=== PATIENT | female | born 1995 | race Caucasian/White ===

== ENCOUNTER 2023-07-19 15:35 | Emergency (ER) | payer MEDICAID ==
[2023-07-19 15:50] VITALS: O2SAT 100
--- NOTE | 2023-07-19 16:00 | ED Physician Documentation ---
PD HPI SYNCOPE - Stated complaint Stated Complaint: PASSED OUT - Chief complaint Chief Complaint: Neuro - History obtained from History obtained from: Patient - Additional information Additional information: She has a history of recurrent syncope. It started when she was a freshman in high school so greater than 10 years ago. There is some progression to it, now happening she thinks about 6 times a year. She also may have a seizure disorder. There is no particular pattern to it. Today she had a syncopal episode while at work. She was not injured. She states the she feels hot for several seconds before it happens and then gets vertigo and tunnel vision and then passes out. There is no associated chest pain or trouble breathing. She denies any possibility of . PD PAST MEDICAL HISTORY - Past Medical History Past Medical History: Yes Psych: Depression, Anxiety - Past Surgical History Past Surgical History: No - Allergies Allergies/Adverse Reactions: Allergies Allergy/AdvReac Type Severity Reaction Status Date / Time tioconazole Allergy Itching Verified 07/19/23 15:40 [From Monistat 1 (tioconazole)] - Social History Does the pt smoke?: No Smoking Status: Never smoker Does the pt drink ETOH?: Yes Does the pt have substance abuse?: No Substance Use and Type: Marijuana - Immunizations Immunizations are current?: Yes - POLST Patient has POLST: No PD ED PE NORMAL - Vitals Vital signs reviewed: Yes - General General: Alert and oriented X 3, No acute distress - HEENT HEENT: PERRL, EOMI - Neck Neck: Supple, no meningeal sign, No bony TTP - Cardiac Cardiac: RRR, No murmur - Respiratory Respiratory: No respiratory distress, Clear bilaterally - Abdomen Abdomen: Non tender - Derm Derm: Normal color, Warm and dry - Neuro Neuro: Alert and oriented X 3, No motor deficit, No sensory deficit, Normal speech Eye Opening: Spontaneous Motor: Obeys Commands Verbal: Oriented GCS Score: 15 Results - Vitals Vitals: Vital Signs - 24 hr 07/19/23 07/19/23 15:40 16:19 Temperature 36.5 C Heart Rate 64 60 Respiratory 16 23 Rate Blood Pressure 130/86 H 99/84 H O2 Saturation 100 100 Oxygen O2 Source Room air - EKG (time done) 1603 EKG releavant findings:: EKG personally interpreted by author of this note. Relevant findings are: Rate: Rate (enter#) (54) Rhythm: NSR [place]: Normal Intervals: Normal [place] QRS: Low voltage Ischemia: Normal ST segments - Labs Labs: Laboratory Tests 07/19/23 07/19/23 07/19/23 16:15 16:15 16:30 WBC 5.3 RBC 4.09 L Hgb 12.9 Hct 38.6 MCV 94.4 MCH 31.5 H MCHC 33.4 RDW 12.5 Plt Count 207 MPV 11.7 H Neut # (Auto) 2.5 Lymph # (Auto) 2.1 Person # (Auto) 0.4 Eos # (Auto) 0.2 Baso # (Auto) 0.0 Absolute Nucleated RBC 0.00 Nucleated RBC % 0.0 Sodium 136 Potassium 3.9 Chloride 106 Carbon Dioxide 25 Anion Gap 5.0 L BUN 11 Creatinine 0.8 Estimated GFR (MDRD) 86 L Glucose 89 Calcium 9.5 Total Bilirubin 0.4 AST 13 ALT 8 L Alkaline Phosphatase 36 L Total Protein 7.0 Albumin 4.5 Globulin 2.5 Albumin/Globulin Ratio 1.8 Urine Color STRAW Urine Clarity CLEAR Urine pH 6.0 Ur Specific [place] <=1.005 Urine Protein NEGATIVE Urine Glucose (UA) NEGATIVE Urine Ketones NEGATIVE Urine Occult Blood TRACE-INTA Urine Nitrite NEGATIVE Urine Bilirubin NEGATIVE Urine Urobilinogen 0.2 (NORMAL) Ur Leukocyte Esterase NEGATIVE Ur Microscopic Review NOT INDICATED Urine Culture Comments NOT INDICATED Urine HCG, Qual NEGATIVE PD Medical Decision Making - ED course ED course: 28-year-old woman with recurrent syncope and she had an episode today. No seizure activity today but she says she has seizures as well. Will perform usual syncope workup with EKG, blood sugar, test. I do not see any indication for cranial imaging. 28-year-old woman with recurrent syncope of unclear etiology. The worry would of course be for heart issue, but her EKG is normal as is her exam. And this is a recurrent issue. Workup in the emergency department demonstrated a CBC that was normal without anemia, and really unremarkable CMP, urinalysis, and testing. Departure - Departure Disposition: 01 Home, Self Care Clinical Impression: Syncope Qualifiers: Syncope type: unspecified Qualified Code(s): R55 - Syncope and collapse Condition: Good Record reviewed to determine appropriate education?: Yes Instructions: ED Fainting Unkn Cause Comments: Findings in the emergency department demonstrated a normal EKG, and unremarkable blood work. There is no evidence of anemia or kidney dysfunction. Do follow-up with the neurologist later this week as you are already planning. Return for new or worsening symptoms. Forms: PCP List, Activity restrictions
[2023-07-19 16:23] LABS: BASOPHILS % (AUTO) 0.8 %; EOSINOPHILS # (AUTO) 0.2 10^3/uL (0.0-0.7); EOSINOPHILS % (AUTO) 2.9 %; HCT - HEMATOCRIT 38.6 % (37.0-47.0); HGB - HEMOGLOBIN 12.9 g/dL (12.0-16.0); LYMPHOCYTES # (AUTO) 2.1 10^3/uL (1.5-3.5); MEAN CORPUSCULAR HEMOGLOBIN 31.5 pg (27.0-31.0); MEAN CORPUSCULAR HGB CONC 33.4 g/dL (32.0-36.0); MEAN CORPUSCULAR VOLUME 94.4 fL (81.0-99.0); MEAN PLATELET VOLUME 11.7 fL (7.9-10.8); MONOCYTES # (AUTO) 0.4 10^3/uL (0.0-1.0); MONOCYTES % (AUTO) 8.2 %; NEUTROPHILS # (AUTO) 2.5 10^3/uL (1.5-6.6); NEUTROPHILS % (AUTO) 47.7 %; PLT - PLATELET COUNT 207 10^3/uL (130-450); RED BLOOD COUNT 4.09 10^6/uL (4.20-5.40); RED CELL DISTRIBUTION WIDTH 12.5 % (12.0-15.0); WHITE BLOOD COUNT 5.3 x10^3/uL (4.8-10.8)
[2023-07-19 16:27] VITALS: BP 99/84
[2023-07-19 16:38] LABS: ALBUMIN 4.5 g/dL (3.2-5.5); ALBUMIN/GLOBULIN RATIO 1.8 (1.0-2.2); BILIRUBIN,TOTAL 0.4 mg/dL (0.2-1.0); CALCIUM 9.5 mg/dL (8.5-10.3); CREATININE 0.8 mg/dL (0.6-1.3); POTASSIUM 3.9 mmol/L (3.5-4.5)
[2023-07-19 16:43] LABS: BILIRUBIN,URINE NEGATIVE (NEGATIVE); GLUCOSE, URINE (UA) NEGATIVE (NEGATIVE); KETONES,URINE (UA) NEGATIVE (NEGATIVE); LEUKOCYTE ESTERASE, URINE NEGATIVE (NEGATIVE); NITRITE,URINE NEGATIVE (NEGATIVE); OCCULT BLOOD,URINE TRACE-INTA (NEGATIVE); PROTEIN,URINE NEGATIVE (NEGATIVE); UROBILINOGEN,URINE 0.2 (NORMAL) E.U./dL (NORMAL)
[2023-07-19 16:44] LABS: CLARITY,URINE CLEAR (CLEAR); HCG UR QUAL NEGATIVE
== END 2023-07-19 17:06 | disposition home or self-care (01) ==
LOC: ED 15:35
DX: R55 Syncope and collapse (principal)
CPT/HCPCS: 36415; 80053; 81001; 81003; 81025; 85025; 87086; 93005; 99284